=== PATIENT | female | born 1940 | race Caucasian/White ===

== ENCOUNTER 2024-07-31 08:33 | Observation (INO) ==
--- NOTE | 2024-06-28 10:37 | PAT Medication Instructions ---
Medication Instructions Date of Service June 28, 2024 Home Medications atorvastatin 20 mg tablet (Lipitor) 20 mg PO QPM furosemide 20 mg tablet 20 mg PO QAM potassium chloride 10 mEq capsule,extended release 20 meq PO QAM losartan 100 mg tablet 100 mg PO QAM acetaminophen 500 mg capsule 500 mg PO UD PRN Pain lifitegrast 5 % eye drops in a dropperette (Xiidra) 1 drp ophthalmic (eye) BID escitalopram oxalate 5 mg tablet (Lexapro) 5 mg PO PM meloxicam 15 mg tablet 15 mg PO DAILY PRN Pain MEDICATION INSTRUCTIONS: Continue as directed lifitegrast 5 % eye drops in a dropperette (Xiidra) 1 drp ophthalmic (eye) BID ASK your surgeon for instructions meloxicam 15 mg tablet 15 mg PO DAILY PRN Pain DO NOT take the morning of surgery furosemide 20 mg tablet 20 mg PO QAM potassium chloride 10 mEq capsule,extended release 20 meq PO QAM losartan 100 mg tablet 100 mg PO QAM Take morning of surgery With a small sip of water, OTHERWISE NOTHING TO EAT OR DRINK AFTER MIDNIGHT: acetaminophen 500 mg capsule 500 mg PO UD PRN Pain Take evening before surgery escitalopram oxalate 5 mg tablet (Lexapro) 5 mg PO PM atorvastatin 20 mg tablet (Lipitor) 20 mg PO QPM acetaminophen 500 mg capsule 500 mg PO UD PRN Pain Other Notes If you have any questions please call us at [phone] or [phone] or [phone] or [phone]
--- NOTE | 2024-07-09 13:05 | Anesthesiology Consultation ---
Date of Service July 09, 2024 Assessment & Plan (1) Encounter for pre-operative examination: - Infectious disease screening: Per assessment on 07/09/24- No known recent infectious disease contacts or current infectious disease symptoms. - Outpatient joint assessment: Pt currently scheduled for inpatient pathway. If surgeon requests review for outpatient joint pathway, patient is not recommended candidate for outpatient joint program from anesthesia standpoint based on available information. - EP visit (07/09/24): "1. Heart block: Normally functioning dual-chamber permanent pacemaker. 100% ventricular pacing. Longevity at 33%. Normal thresholds in the atrial ventricular leads. No recorded arrhythmias.. Hypertension: Borderline control. She recently had amlodipine added to her med ical regimen which seems reasonable.. Atrial tachycardia: This is a remote diagnosis. No recent arrhythmias detected through her device.. Dyspnea: None currently. Likely due to being more sedentary and limited by left hip discomfort.. Preoperative: While she does not have concerning cardiac symptoms, overall workload is quite low due to hip discomfort. As such I think it is reas onable to perform a perfusion study preoperatively. Device should be reprogrammed to a non sensing mode for her surgery as she is dependent." - [employer] device: Michelle with OR made aware of EP request for pacer rep/reprogramming perioperatively. Received email confirmation from [employer] rep (Lisa Gamboa) that they are able to be present DOS (per surgery timing coordination with surgeon/OR). - Patient acceptable risk for surgery pending EP-ordered preop stress test ([facility] EP, date TBD). Chart Review Chart Review: Patient seen in Pre Admission Testing Teaching & Discussion Pre-Anesthesia Teaching/Discussion Notes: Instructed NPO after midnight before surgery,except medications with 15 cc of water. Medication instructions provided according to the PAT guidelines. History Surgery Operation Date: 07/31/24 10:40 Proposed Procedures p Left Total Hip Arthroplasty - Fredy Leonardo MD Height/Weight Height: 5 ft 3 in Weight: 88.3 kg Allergies Allergy/AdvReac Type Severity Reaction Status Date / Time metoprolol Allergy Mild Rash Verified 07/09/24 09:44 Medications Home Medications Medication Instructions Recorded Confirmed Last Taken atorvastatin 20 mg tablet (Lipitor) 20 mg PO QPM 12/19/18 07/09/24 02/04/21 furosemide 20 mg tablet 20 mg PO QAM 12/19/18 07/09/2422 08:30 potassium chloride 10 mEq 20 meq PO QAM 12/19/18 07/09/24 06/11/21 08:30 capsule,extended release losartan 100 mg tablet 100 mg PO QAM 03/24/20 07/09/24 06/11/21 08:30 acetaminophen 500 mg capsule 500 mg PO UD PRN Pain 05/07/20 07/09/24 02/04/21 lifitegrast 5 % eye drops in a 1 drp ophthalmic (eye) BID 03/03/21 07/09/24 Unknown dropperette (Xiidra) escitalopram oxalate 5 mg tablet 5 mg PO PM 06/28/24 07/09/24 Unknown (Lexapro) meloxicam 15 mg tablet 15 mg PO DAILY PRN Pain 06/28/24 07/09/24 Unknown Past Medical History Medical History Bilateral tinnitus Chronic venous insufficiency Per records Degenerative disc disease Depression HTN (hypertension) Hyperlipidemia Obesity Osteoarthritis Pacemaker Biotronic, implanted [address] Baptiste Pain of right sacroiliac joint Spinal stenosis Exercise / Class Metabolic Activity III < 4 Walking/Shop/Light housework Past Family History Family History Daughter Diabetes mellitus type 1 Other No family history of adverse response to anesthesia Past Surgical History Surgical History History of cataract surgery R/L History of colonoscopy History of esophagogastroduodenoscopy (EGD) History of tooth extraction History of total right knee replacement Nausea and vomiting after administration of anesthetic agent with knee replacement S/P epidural steroid injection Past Anesthesia History No Hx of Anesthesia Complications and No Family Hx of Anesthesia Complications History of PONV No Hx of Motion Sickness and History of PONV Social History Smoking Status: Former smoker tobacco type: cigarettes Do You Dip or Chew Tobacco: No Smoking End Date: Quit age 50 Hx Alcohol Use: Yes Alcohol type: beer alcohol intake frequency: a few times a month Hx Substance Use: No substance use type: does not use Review of Systems Patient denies chest pain, shortness of breath, fever, chills, cough, wheezing, palpitations. Physical Exam Vital Signs BP 139/76 P 74 TEMP 97.8 SP02 97%RA RESP 16 Physical Full cervical extension range of motion. Full TMJ range of motion. TMD 3 finger breaths Mallampati Score II Dentition: missing molars, + caps/crowns Lungs: clear throughout to auscultation Cardiac: regular rate and rhythm, no murmurs noted Spine: normal Carotid arteries: negative bruit Extremities: non-pitting LE edema Lab Results Anesthesia Preop Results Results Anesthesia Widget: WBC 6.73 K/ul (4.8-10.8) 07/09/24 Hgb 13.9 g/dl (12.0-16.0) 07/09/24 Hct 41.7 % (37.0-47.0) 07/09/24 Plt 253 K/uL (130-400) 07/09/24 Na 140 mmol/L (136-145) 07/09/24 K 4.1 mmol/L (3.5-5.1) 07/09/24 Cl 107 mmol/L (98-107) 07/09/24 CO2 30 mmol/L (21-32) 07/09/24 BUN 36 mg/dl (6-23) H 07/09/24 Creat 1.07 mg/dl (0.6-1.2) 07/09/24 Glucose Level 103 mg/dl (70-99(Fasting)) H 07/09/24 PT 11.0 Seconds (9.0-12.0) 07/09/24 PTT 26 Seconds (21-31) 07/09/24 INR 1.0 (0.9-1.1) 07/09/24 Blood Type AB Negative 07/09/24 Antibody Screen NEGATIVE 07/09/24 Testing Electrocardiogram Date: 07/09/24 Atrial-sensed ventricular-paced rhythm with prolonged AV conduction at 75bpm. Chest X-Ray Date: 07/09/24 FINDINGS: Left cardiac pacemaker is present. Heart size and pulmonary vasculature are normal. No effusion, consolidation, or pneumothorax. IMPRESSION: No acute findings. 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 2% AP.
--- NOTE | 2024-07-28 11:04 | History & Physical Report ---
Date of Service July 28, 2024 Assessment & Plan (1) Arthritis of left hip: 83-year-old female with progressive left hip arthritis. She become more debilitated by her disease and having trouble getting around. She would like to have her hip fixed. Her disease has progressed significantly over the past 6 months. Plan: Boirs taken the operating room and do a left total hip replacement the risks Mente this procedure explained and she understands the informed consent is obtained. She had a cardiac workup by Dr. Baptiste. The final results are still pending but looks pretty optimistic. She is got a pacemaker in place and will have to coordinate this management with the pacemaker rep. Will use aspirin for DVT prophylaxis. She is planning on being discharged to home with some home health and her and daughter's assistance. (2) Hyperlipidemia: (3) HTN (hypertension): (4) Pacemaker: (5) Obesity: History of Present Illness Chief Complaint: . Progressive left hip pain and discomfort. Primary Care Provider: Saeed Jones MD . The patient is an 83-year-old female who presents for surgical treatment of her left hip. She has a several year history of increasing left hip pain discomfort that is gotten significantly worse over the past several months. He has had to resort to using a cane to get around for the past 3 months. Saroj cribes groin pain and thigh pain and lateral hip pain. She limps and gets worse as the day goes on. She has failed conservative measures. She like to have her hip replaced. The patient does appear to have a pretty significant cardiac history and has a pacemaker in place. She has been followed by Dr. Enciso. She recently had a stress test which was fairly unremarkable. Allergies Allergy/AdvReac Type Severity Reaction Status Date / Time metoprolol Allergy Mild Rash Verified 07/09/24 09:44 Home Medications Medication Instructions Recorded Confirmed Type atorvastatin 20 mg tablet (Lipitor) 20 mg PO QPM 12/19/18 07/09/24 History furosemide 20 mg tablet 20 mg PO QAM 12/19/18 07/09/24 History potassium chloride 10 mEq 20 meq PO QAM 12/19/18 07/09/24 History capsule,extended release losartan 100 mg tablet 100 mg PO QAM 03/24/20 07/09/24 History acetaminophen 500 mg capsule 500 mg PO UD PRN Pain 05/07/20 07/09/24 History lifitegrast 5 % eye drops in a 1 drp ophthalmic (eye) BID 03/03/21 07/09/24 History dropperette (Xiidra) escitalopram oxalate 5 mg tablet 5 mg PO PM 06/28/24 07/09/24 History (Lexapro) meloxicam 15 mg tablet 15 mg PO DAILY PRN Pain 06/28/24 07/09/24 History Past Med/Surg History Problem List (Updated 07/28/24 @ 11:02 by Fredy Leonardo MD) Arthritis of left hip Encounter for pre-operative examination Lymphedema Bilateral tinnitus Sensorineural hearing loss (SNHL) of both ears Borderline normal thru 2k then slopes to sev. AU Lumbar facet joint syndrome (Chronic) Spinal stenosis of lumbar region (Chronic) Vitamin D deficiency Depression (Chronic) Medical History Obesity Chronic venous insufficiency Per records Depression Degenerative disc disease Spinal stenosis Osteoarthritis Bilateral tinnitus Hyperlipidemia HTN (hypertension) Pain of right sacroiliac joint Pacemaker Biotronic, implanted [address] Baptiste Surgical History History of cataract surgery R/L S/P epidural steroid injection History of total right knee replacement Nausea and vomiting after administration of anesthetic agent with knee replacement History of tooth extraction History of esophagogastroduodenoscopy (EGD) History of colonoscopy Family History Daughter Diabetes mellitus type 1 Other No family history of adverse response to anesthesia Social History Smoking Status: Former smoker Second Hand Exposure: No; Do You Dip or Chew Tobacco: No; Hx Alcohol Use: Yes Alcohol type: beer Hx Substance Use: No Preferred Language: Greenlandic Communication Ability: Effective Visual Impairment: Limited Hearing Ability: Normal Salesforce Consultant Required: No Beliefs That Will Affect Care: None marital status: Current Living Situation: Spouse current occupational status: retired Feels Safe at Home: Yes Assistive Devices: Cane and Glasses Review of Systems All systems reviewed & are unremarkable except as noted in HPI & below. Physical Exam . Physical examination reveals a pleasant elderly female but looks be in pretty good health. Examination of left hip and leg reveal patient ambulates with use of cane. She limps quite a bit as she walks a little bit further she limps a little bit last. There she is about a centimeter short in the left side compared to the right. Moderate to large soft tissue envelope. She got pain with any type of hip motion. Internal rotation to neutral. Negative straight leg raise. She is neurologically intact. Constitutional WD/WN, vitals as above Respiratory normal respiratory effort, lungs clear to auscultation Cardiovascular RRR, no murmur, no edema Gastrointestinal (Abdomen) normal bowel sounds, soft, nontender, no hepatosplenomegaly Results & Data Results & Data Laboratory Results . Diagnostic Findings . X-rays of the left hip were reviewed. Shows advanced hip arthritis. She has complete loss of her superior joint space. Got cystic changes on both sides of the joint. This has progressed significantly over the past 4 to 5 months. PG Care Time/CCT Total # of Minutes Spent Total Time Spent with Patient: Total time spent is greater than 50% in coordination of care (as documented) at patient's floor/unit and/or counseling patient: Coding Level of Care Code None Diagnoses Arthritis of left hip M16.12 Hyperlipidemia E78.5 HTN (hypertension) I10 Pacemaker Z95.0 Obesity E66.9
[~2024-07-31 08:33] MED LIST: BUPIVACAINE 0.5 % 5 MG/1 ML PF 10ML VIAL ONE
--- NOTE | 2024-07-31 08:52 | History & Physical Bridge Note ---
Date of Service July 31, 2024 History & Physical Bridge Note I have examined the patient, reviewed the History & Physical and in the interval since the performance of the History & Physical I have noted the following changes of clinical significance: no changes noted
[2024-07-31] MEDS: LR 500ML BOLUS, THEN 15ML/HR IV SCH (09:05)
[2024-07-31] MEDS: LR 60ML/HR IV SCH (09:10)
[2024-07-31] MEDS: FAMOTIDINE 20 MG TAB PO SCH (09:28)
[2024-07-31] MEDS: ACETAMINOPHEN 500 MG TAB PO SCH ×2 (09:28→15:13)
[2024-07-31] MEDS: dexAMETHasone**PF** 10 MG/ML VIAL IV SCH (09:29)
[2024-07-31] MEDS: METOCLOPRAMIDE HCL 10 MG TABLET PO SCH (09:29)
[2024-07-31] MEDS: CeleBREX 200 MG CAP PO SCH (09:29)
[2024-07-31] MEDS ORDERED: PROPOFOL IV EMULSION 10 MG/ML 20 ML VIAL IV ONE (09:32)
[2024-07-31] MEDS ORDERED: LIDOCAINE 2% 2 ML VIAL/AMP(20MG/ML) INFIL ONE (09:32)
[2024-07-31] MEDS ORDERED: ONDANSETRON INJ 2 MG/ML 2 ML VIAL ONE (09:32)
[2024-07-31] MEDS ORDERED: MIDAZOLAM HCL 1 MG/ML 2ML VIAL ONE (09:32)
[2024-07-31] MEDS ORDERED: GLYCOPYRROLATE 0.2 MG/ML VIAL ONE (09:32)
[2024-07-31] MEDS ORDERED: SODIUM CHLORIDE 0.9% PF INJ 10 ML VIAL ONE (09:37)
[2024-07-31] MEDS ORDERED: ePHEDrine sulfate 50 MG/ML AMP ONE (09:37)
[2024-07-31] MEDS ORDERED: PHENYLEPHRINE 100MCG/ML 5ML SYR ONE (09:37)
[2024-07-31] MEDS ORDERED: ATROPINE SULFATE 0.1 MG/ML 10ML SYR IV PRN (09:45)
[2024-07-31] MEDS ORDERED: ONDANSETRON INJ 2 MG/ML 2 ML VIAL IV PRN ×2 (09:45→15:00)
[2024-07-31] MEDS ORDERED: ePHEDrine sulfate 50 MG/ML AMP IV PRN (09:45)
[2024-07-31] MEDS ORDERED: fentaNYL citrate PF 100 MCG/2 ML VIAL IV PRN (09:45)
[2024-07-31] MEDS: TRANEXAMIC ACID 1,000 MG **IV Pre-op IV SCH (10:56)
[2024-07-31] MEDS: ceFAZolin 2000MG 2,000 MG/15 ML SYR IV SCH ×2 (11:12→18:09)
[2024-07-31] MEDS: BUPIVACAINE/EPINEPHRINE 0.5% MPF 1:200,000 30 ML VIAL ONE (11:45)
--- NOTE | 2024-07-31 13:11 | Operative Report ---
PG Post Operative Report Pre & Post Diagnosis Operation Date: 07/31/24 10:40 Pre-Op Diagnosis: Arthritis of left hip Post-Op Diagnosis: Arthritis of left hip with chronic right hip abductor avulsion I identified the patient and participated in the time-out.: Yes Procedure Operation Date: 07/31/24 10:40 Actual Procedures p Left hybrid/cemented total Hip Arthroplasty(Left) Left hip abductor repair- Fredy Leonardo MD Surgeon Fredy Leonardo MD Homeopathic Doctor Paul Nina PA-C Estimated Blood Loss 100 Findings Consistent with Post-Op Diagnosis Specimens Left femoral head sent for pathology. Anesthesia Type Spinal MAC Complications none Disposition Accompanied Patient To Recovery: No Indications Patient is a 83-year-old female whose had a history of relatively recent gradual progressive left hip pain discomfort and increased movement difficulty mobility getting around. She was treated conservatively without adequate relief. X-rays show advanced left hip arthritis. She failed conservative measures. She elected proceed with total hip arthroplasty. Description of Procedure Operative implants consist of: 1. Biomet G7 size 52 mm acetabular shell. 2. Two 6.5 cancellous acetabular screws 1 of 35 mm in length 125 mm length. 3. Jean hole car worker. 4. Highly cross-linked polyethylene liner with a 52 mm outer diameter and 36 mm inner diameter. 5. DePuy Comal size 3 high offset cemented femoral stem with a centralizer. 6. +5/36 mm ceramic articular ball. 7. Small distal cement restrictor 8. Biomet juggernaut anchors x 1 The patient was taken the op room, identified, placed on the operating table in the supine position. All conductors were appropriately padded. IV antibiotics arrived by anesthesia team. A spinal anesthetic been implemented holding area. A Grace catheter was placed in sterile fashion. The patient did receive 1 g tranexamic acid preoperatively. She was then placed in the right lateral cubitus position and axillary roll was placed. A stool Birkett position was used for positioning. Left hip and leg were then prepped and draped in the usual sterile fashion. A posterolateral approach to the left hip was then performed to a curvilinear incision centered over the greater trochanter. Sharp dissection was got through subcutaneous tissue down the IT band gluteal fascia. The IT band gluteal fascia incised longitudinally in line with skin incision. The underlying greater bursa was excised. Of note, her right hip abductors were completely absent and atrophied. They were retracted proximally and anteriorly. The external rotators and the posterior hip joint capsule were then taken off the posterior aspect of the hip as a single layer. Great care was taken throughout the procedure protect the sciatic nerve at all times. The hip was internally rotated and dislocated. A femoral neck osteotomy cut was made with Final Cut 10 mm above the lesser trochanter. Femoral head was removed and sent for pathology. The femur was retracted anteriorly. Attention then drawn the acetabulum. The acetabular labrum was excised. The pulmonary fat was excised. Sequential reaming the acetabular was then performed beginning with size 45 and progressing up to a 51. I reamed a little bit with a 52 reamer and then placed a 52 mm Biomet G7 acetabular shell in about 40 degrees lateral opening and 20 degrees of anteversion. It was fixed with two 6.5 screws. A trial liner was placed. Attention drawn the femur. The proximal femur was entered with a PlaceVine cutter followed by canal finder and lateralizing reamer. I then broached beginning with a size 1 and progressing up to a 2. Could not quite get the 3 down safely. We then trialed and the +5 articular ball with a high offset stem seemed to fit most appropriately. It was felt fully stable and soft tissue tension was appropriate. Leg lengths appeared equal. We elect place his implants. All trial implants were removed. An apex hole car worker was placed. Highly cross-linked polyethylene liner was placed. A small cement restrictor was placed down the canal. The canal was irrigated and dried and cleaned. A double batch Palacos G cement was mixed and injected in the canal. The size 3 high offset stem with a centralizer was then placed. Once the cement hardened a +5/36 mm metal articular ball was placed. Hip was located and once again found to be stable. Attention drawn toward closing. Wounds irrigated coconuts pulsatile lavage solution. We injected locally with 60 cc of absent Marcaine with epinephrine. The posterior capsule and external rotators were then repaired through drill holes in the posterior trochanter with #2 Tycron suture. I then placed a single juggernaut anchor with 2 sutures in the greater trochanter. This was fed through the hip abductors proximally and then anteriorly. These were tied down. The IT band gluteal fascia was then closed #1 PDS suture in a running fashion the subcutaneous tissues then closed with 2 layers the deep layer #2 Vicryl suture and subcutaneous tissues with 2 Dexon suture in buried erupted fashion. Skin was then closed with skin alexandre. Leg was then cleaned and dried and a Prevena VAC dressing was applied due to the very thick soft tissue envelope. The patient was then transferred to the recovery room in stable condition. Patient tolerated procedure well and there were no complications. Paul Nina, my physician dam tender assistant, was present for the entire procedure. His assistance was essential and required for appropriate patient positioning, prepping and draping, surgical exposure, performing the technical details of the operation, placement the implants, closure of the wound, and placement of the sterile bandage. I attest to the content of the Intraoperative Record and any orders documented therein. Any exceptions are noted below.
--- NOTE | 2024-07-31 13:58 | XRay Report ---
XR hip 1V LT w pelvis CLINICAL HISTORY: IN PACU - Post Surgical COMPARISON: None FINDINGS: Left hip prosthesis shows no hardware complication. There is expected soft tissue gas. Ski n alexandre are present. IMPRESSION: Unremarkable postoperative exam. ACT 112: Negative or not required by law. Electronically signed by: Gerhard Sanon M.D. 07/31/2024 1:57 PM
--- NOTE | 2024-07-31 14:05 | Anesthesiology Progress Note ---
Date of Service July 31, 2024 Anesthesia Post Procedure Vital Signs Vital Signs: Temp Pulse Resp BP Pulse Ox O2 Del Method O2 Flow Rate 07/31/24 13:55 36.4 C L 77 16 131/54 L 93 Room Air 07/31/24 13:45 79 12 106/85 93 Room Air 07/31/24 13:35 79 12 128/78 94 Room Air 07/31/24 13:25 78 20 121/51 L 99 Room Air 07/31/24 13:15 80 18 123/57 L 98 Room Air 07/31/24 13:05 70 16 97/55 L 98 Oxymask 4 07/31/24 12:59 36.5 C 70 16 114/47 L 96 Oxymask 6 07/31/24 08:56 36.8 C 88 20 173/90 H 95 Room Air Pain Intensity Left Hip: Pain Intensity: 5 Transfer of Care Handoff Completed per policy Notes Mental Status: alert / awake / arousable and participated in evaluation Patient Amnestic to Procedure: Yes Nausea / Vomiting: adequately controlled Pain: adequately controlled Airway Patency, RR, SpO2: stable & adequate BP & HR: stable & adequate Hydration State: stable & adequate Neuraxial Anesthesia: was administered and sensory block is resolving Anesthetic Complications: no major complications apparent and Pt Satisfied with anesthetic care Notes: pacer rep reprogrammed pacer in recovery without incident
[2024-07-31] MEDS ORDERED: ALUMINUM/MAGNESIUM SUSP 30 ML UDC PO PRN (15:00)
[2024-07-31] MEDS ORDERED: MAGNESIUM HYDROXIDE SUSP 30 ML UDC PO PRN (15:00)
[2024-07-31] MEDS ORDERED: METOCLOPRAMIDE HCL INJ 5 MG/ML 2 ML VIAL IV PRN (15:00)
[2024-07-31] MEDS ORDERED: ACETAMINOPHEN 500 MG TAB PO SCH (15:00)
[2024-07-31] MEDS ORDERED: NALOXONE HCL 0.4 MG/1 ML VIAL/CARP IV PRN (15:00)
[2024-07-31] MEDS ORDERED: bisacodyL 10 MG SUPP PR PRN (15:00)
[2024-07-31] MEDS: KETOROLAC TROMETHAMINE 15 MG/ML VIAL IV SCH (15:52)
[2024-07-31] MEDS: TRANEXAMIC ACID / 0.7% NACL 1,000 MG/100 ML BAG IV SCH (18:08)
[2024-07-31] MEDS: ASCORBIC ACID 500 MG TAB PO SCH (18:08)
[2024-07-31] MEDS: ASPIRIN 81 MG ECTAB PO SCH (20:24)
[2024-07-31] MEDS: SENNA 8.6 MG TAB PO SCH (20:24)
[2024-07-31] MEDS: amLODIPine BESYLATE 5 MG TAB PO SCH (20:24)
[2024-07-31] MEDS: DOCUSATE SODIUM 100 MG CAP PO SCH (20:24)
[2024-07-31] MEDS: ATORVASTATIN 20 MG TAB PO SCH (20:24)
[2024-07-31] MEDS: ESCITALOPRAM OXALATE 10 MG TAB PO SCH (20:24)
[2024-07-31] MEDS ORDERED: ARTIFICIAL TEARS OP PRN (21:00)
[2024-07-31] MEDS ORDERED: SENNA 8.6 MG TAB PO SCH (21:00)
[2024-07-31] MEDS: traMADol HCL 50 MG TABLET PO PRN (21:25)
[2024-07-31] MEDS: HYDROmorphone INJ 0.5 MG/0.5 ML SYR IV PRN (22:29)
[2024-07-31] MEDS ORDERED: tiZANidine HCL 4 MG TABLET PO PRN (23:18)
[2024-08-01 07:13] LABS: Basophils # (auto) 0.01 K/uL (0.00-0.20); Basophils % (auto) 0.1 %; Hematocrit (blood only) 36.7 % (37.0-47.0); Hemoglobin 12.4 g/dl (12.0-16.0); Immature Granulocytes # (auto) 0.05 K/uL (0.01-0.20); Immature Granulocytes % (auto) 0.4 %; Lymphocytes # (auto) 0.88 K/uL (1.20-3.40); Lymphocytes % (auto) 6.7 %; Mean Corpuscular Hemoglobin 32.4 pg (25.0-34.0); Mean Corpuscular Hgb Conc 33.8 g/dL (32.0-36.0); Mean Corpuscular Volume 95.8 fL (80.0-100.0); Mean Platelet Volume 9.4 fL (9.4-12.4); Monocytes # (auto) 0.76 K/uL (0.11-0.59); Monocytes % (auto) 5.8 %; Neutrophils # (auto) 11.38 K/uL (1.40-6.50); Platelet Count 263 K/uL (130-400); RDW Coefficient of Variation 12.3 % (11.5-14.5); RDW Standard Deviation 43.5 fL (36.4-46.3); Red Blood Count 3.83 M/uL (4.20-5.40); White Blood Count 13.08 K/ul (4.8-10.8)
[2024-08-01 07:34] LABS: BUN Creatinine Ratio 28.1 (10-20); Calcium 8.8 mg/dl (8.6-10.3); Potassium 4.3 mmol/L (3.5-5.1)
[2024-08-01] MEDS: MULTIVITAMIN TAB PO SCH (07:43)
[2024-08-01] MEDS: LOSARTAN POTASSIUM 50 MG TAB PO SCH (07:44)
[2024-08-01] MEDS: dexAMETHasone 10 MG in SYRINGE 0 ML IV SCH (07:44)
[2024-08-01] MEDS: FUROSEMIDE 20 MG TAB PO SCH (07:44)
[2024-08-01 07:59] VITALS: PULSE 74; RESP 16; TEMP 97.7; O2SAT 96
[2024-08-01] MEDS: POTASSIUM CHLORIDE CRTAB 20 MEQ TABCR PO SCH (08:08)
--- NOTE | 2024-08-01 08:51 | Orthopedic Progress Note ---
Date of Service August 01, 2024 Assessment & Plan (1) S/P total left hip arthroplasty: Pain controlled. Continue PT/OT wbat, total hip precautions. dvt prophylaxis: teds, scd's, aspirin discharge home today with home health after PT. Follow up with Dr Leonardo 2-3 weeks Subjective .83 year old patient POD 1 from left ines. Had some thigh pain/cramping last night but resolved today. No other complaints. Review of Systems All systems reviewed & are unremarkable except as noted in HPI & below. Physical Exam .alert and oriented. NAD VSS Left leg: prevena vac dressing intact and working. Able to dorsiflex and plantarflex. NVI Results & Data Results & Data Laboratory Results . Diagnostic Findings . PG Care Time/CCT Total # of Minutes Spent Total Time Spent with Patient: Total time spent is greater than 50% in coordination of care (as documented) at patient's floor/unit and/or counseling patient: Coding Level of Care Code 43097 Post Operative Follow-Up Diagnoses S/P total left hip arthroplasty Z96.642
[2024-08-01 09:24] VITALS: BP 125/72
== END 2024-08-01 10:53 | disposition home health service (06) ==
LOC: 3N 08:33 → ASU 08:33